=== PATIENT | female | born 1985 | race Caucasian/White ===

== ENCOUNTER 2020-01-17 07:38 | Outpatient (REF) | payer OTHER, SELFPAY | END 2020-01-17 07:39 | disposition home or self-care (01) | LOC: HO.LAB 07:38 | PROVIDERS: Visit Provider Internal Medicine | DX: Z20.828 Contact with and (suspected) exposure to other viral communicable diseases (principal) | CPT/HCPCS: C9803; U0003 ==

== ENCOUNTER 2022-05-29 14:03 | Emergency (ER) | payer MEDICAID, SELFPAY ==
--- NOTE | ~2022-05-29 | XR_ITS ---
EXAMINATION: XR CHEST CLINICAL INFORMATION: Coughing yesterday COMPARISON: None available. TECHNIQUE: Frontal view of the chest was obtained. FINDINGS: The lungs are well-expanded and clear. The heart size and pulmonary vascularity is normal. There is mild spondylosis. No aggressive lytic or sclerotic process seen. XR/XR chest 1V IMPRESSION: Unremarkable chest exam.
[2022-05-29 14:43] VITALS: BP 139/77; PULSE 89; RESP 18; TEMP 36.6; O2SAT 97; BMI 59.9
--- NOTE | 2022-05-29 14:46 | ED.GENADULT ---
HPI - General Adult General Chief complaint: Upper Respiratory Symptoms <ANNABEL Salgado - Last Filed: 05/30/22 11:55> Stated complaint: Asthma <ANNABEL Salgado Last Filed: 05/30/22 11:55> Time Seen by Provider: 05/29/22 17:51 <ANNABEL Salgado Last Filed: 05/30/22 11:55> Source: patient and family <ANNABEL Sutton Last Filed: 05/29/22 19:29> Mode of arrival: ambulatory <ANNABEL Sutton Last Filed: 05/29/22 19:29> Limitations: no limitations <ANNABEL Sutton Last Filed: 05/29/22 19:29> History of Present Illness HPI narrative: 37-year-old female with a past medical history of asthma who is presenting to the ER with complaints of dry cough with wheezing/shortness of breath for approximately 1 week worse in the past few days. Reports that she was seen by her PCP and was given prednisone although she has been on prednisone for 4 days and no symptomatic relief. She is using her albuterol inhaler and her nebulizers at home with no symptomatic relief. Reports she has never been hospitalized or intubated for her asthma. Denies recent travel or sick contacts, fevers, dizziness, neck pain/stiffness, trouble swallowing, nausea/vomiting, sore throat, nasal congestion, drooling, trismus, change in voice, sputum production, lower extremity edema or calf tenderness, abdominal pain, diarrhea or any other symptoms complaints or concerns at this time. <ANNABEL Sutton - Last Filed: 05/29/22 19:29> MD complaint: Cough/wheezing/shortness of breath <ANNABEL Sutton Last Filed: 05/29/22 19:29> Onset (ago): week(s) (1 week worse in the past few days) <ANNABEL Sutton Last Filed: 05/29/22 19:29> Related Data Home medications: Previous Rx's Medication Instructions Recorded albuterol sulfate 0.63 mg/3 mL 0.63 mg (3 mL) inhalation QID PRN 05/29/22 solution for nebulization shortness of breath or wheezing #75 mL albuterol sulfate 90 mcg/actuation 1 inh inhalation QID PRN shortness 05/29/22 aerosol inhaler of breath or wheezing #8.5 grams codeine 10 mg-guaifenesin 100 mg/5 5 ml PO Q6H PRN cold symptoms #120 05/29/22 mL oral liquid (Guaifenesin AC) mL prednisone 20 mg tablet 40 mg PO DAILY inflammation 5 days 05/29/22 #10 tabs <ANNABEL Salgado - Last Filed: 05/30/22 11:55> Allergies/adverse reactions: Allergies Allergy/AdvReac Type Severity Reaction Status Date / Time penicillin V Allergy Unknown Verified 11/03/16 00:00 pt states no food allergies Allergy Unknown Uncoded 11/03/16 00:00 <ANNABEL Salgado - Last Filed: 05/30/22 11:55> Review of Systems Review of Systems: Constitutional : denies med noncompliance, no history of PE or DVT, denies recent travel, No Fever, No Chills ENT/Mouth : No Hoarseness, No sore throat, No Rhinorrhea, No Nasal congestion, No Sinus Pressure, No Ear Pain, No stridor, Eyes: No Redness, No Discharge, No Vision Changes Cardiovascular : No Chest Pain, + SOB, No Dyspnea on Exertion, No Edema, no pleurisy, Respiratory : + Cough, + wheezing, No Sputum, no stridor, no hemoptysis, Gastrointestinal : No Nausea, No Vomiting, No Diarrhea, No abdominal Pain Genitourinary : No Dysuria, No Hematuria Musculoskeletal : No joint pain/swelling, No Myalgias Extremities: no extremity swelling /pain Skin : No rash, no itching, no swelling Neuro : No Weakness, No Numbness, No Headache, No Dizziness, No Paresthesias Psych : No anxiety, depression Heme/Lymph: No Bruising, No Bleeding Endocrine : No Polyuria, No Polydipsia <ANNABEL Sutton Last Filed: 05/29/22 19:29> Yes all other systems are reviewed and are negative <ANNABEL Sutton - Last Filed: 05/29/22 19:29> [facility]LY [facility] Past Medical History Attestation statement: The following information was validated with the patient. <ANNABEL Sutton Last Filed: 05/29/22 19:29> Source: old records reviewed, obtained from family and nursing notes reviewed <ANNABEL Sutton - Last Filed: 05/29/22 19:29> Social History Social History: Social History Advance Directives: No Advance Directives Information Provided: Yes <ANNABEL Salgado - Last Filed: 05/30/22 11:55> Physical Exam ED Vital Signs: Vital Signs - 24 hr 05/29/22 14:43 05/29/22 18:15 05/29/22 19:27 Temperature 98 F 98.9 F Pulse Rate 89 90 84 Respiratory Rate 18 24 H 16 Blood Pressure 139/77 145/79 H Pulse Oximetry 97 98 Oxygen Delivery Method Room Air 05/29/22 20:02 Temperature Pulse Rate 88 Respiratory Rate Blood Pressure Pulse Oximetry 99 Oxygen Delivery Method Room Air BMI result Body Mass Index 59.9 <ANNABEL Salgado - Last Filed: 05/30/22 11:55> Vital Signs - 24 hr 05/29/22 14:43 05/29/22 18:15 05/29/22 19:27 Temperature 98 F 98.9 F Pulse Rate 89 90 84 Respiratory Rate 18 24 H 16 Blood Pressure 139/77 145/79 H Pulse Oximetry 97 98 Oxygen Delivery Method Room Air 05/29/22 20:02 Temperature Pulse Rate 88 Respiratory Rate Blood Pressure Pulse Oximetry 99 Oxygen Delivery Method Room Air BMI result Body Mass Index 59.9 vital signs have been reviewed as normal and appeared to be correct. Blood pressure normal. Heart rate normal. Respiration rate normal. Temperature normal. Oxygen saturation normal. <ANNABEL Sutton - Last Filed: 05/29/22 19:29> Appearance: Alert. Oriented X3. No acute distress. Head: Normal external exam. Normocephalic. Atraumatic. Eyes: PERRLA. EOMI. Conjunctiva and sclera normal. Eyelids normal. ENT: EAC normal. TM's Normal. Pharynx normal. Uvula midline. Moist mucous membranes. No lesions/ulcerations or masses noted on the tongue. Normal voice. No trismus noted. No drooling noted. No muffled voice noted. Neck: Normal inspection. Neck supple. FROM. No adenopathy. Thyroid Normal. No tracheal deviation noted. No crepitus is noted. No meningeal signs. No neck mass noted. No signs of trauma noted. CVS: Normal heart rate and rhythm. Heart sound normal. Pulses normal throughout. No murmurs/rales/gallops. Respiratory: No respiratory distress. Patient with decreased breath sounds and inspiratory and expiratory wheezing throughout. No rales/rhonchi noted. Chest nontender. No crepitus is noted. No signs of trauma noted. No accessory muscle usage noted or decreased air movement noted. No signs of trauma. Abdomen: Soft and nontender. Bowel sounds normal in all 4 quadrants. No distention noted. No organomegaly noted. No visible injury noted. Back: No CVA tenderness. Full range of motion noted. Nontender. No signs of trauma. Patient neuro intact bilaterally and distally on all 4 extremities. Patient's reflexes intact bilaterally and distally on all 4 extremities. No rashes/lesion/induration/fluctuance or signs of infection noted. Skin: Skin warm and dry. Normal skin color. Normal skin turgor. No rashes/lesions/lacerations noted. Extremities: No lower extremity edema. No calf tenderness is noted. Extremities exhibit normal range of motion and nontender. Neuro: Oriented X 3. No motor deficit. No sensory deficit. Reflexes normal. Normal steady gait. No focal neuro deficits noted. CN's II-XII intact bilaterally? Vascular: + radial pulses. Normal cap refill. No cyanosis noted to upper extremity nails <ANNABEL Sutton - Last Filed: 05/29/22 19:29> Course Course Course Narrative: RME: 37 yold female with pmh of asthma presents to the ED with coughing and wheezing and SOB. patient is on prednisone. Chest xray and SARS ordered <ANNABEL Salgado - Last Filed: 05/30/22 11:55> Reevaluation(s) Reevaluation #1: 37-year-old female presenting with acute cough most consistent with asthma exacerbation with bronchitis. Presentation not consistent with acute bacterial pneumonia, influenza, asthma, transit airway hyper responsiveness. Presentation not consistent with chronic causes of cough such as GERD, COPD, postnasal drip, medication side effect, CHF, lung cancer of mass. Patient negative for COVID/RSV/flu. Patient negative for any acute processes on chest x-ray. Therefore patient received a breathing treatment reports she feels much better will also DC home with Robitussin with codeine instructions to continue taking the steroids as prescribed and to return if any new or worsening symptoms. Patient understands agrees with this plan. <ANNABEL Sutton - Last Filed: 05/29/22 19:29> Time: 19:20 <ANNABEL Sutton - Last Filed: 05/29/22 19:29> Medications Administered Discontinued Medications Generic Name Dose Route Start Last Admin Trade Name Freq PRN Reason Stop Dose Admin Albuterol Sulfate 5 mg 05/29/22 18:23 05/29/22 19:24 Albuterol Sulfate (0.083%) 2.5 Mg/3 Ml Vial.Neb INHALE 05/29/22 18:24 5 mg ONCE ONE Administration Guaifenesin/Codeine Phosphate 10 ml 05/29/22 18:23 05/29/22 18:46 Guaifen/Codeine Sf 200/20/10ml 10 Ml Liquid PO 05/29/22 18:24 10 ml ONCE ONE Administration <ANNABEL Salgado - Last Filed: 05/30/22 11:55> Medications Administered Discontinued Medications Generic Name Dose Route Start Last Admin Trade Name Freq PRN Reason Stop Dose Admin Albuterol Sulfate 5 mg 05/29/22 18:23 05/29/22 19:24 Albuterol Sulfate (0.083%) 2.5 Mg/3 Ml Vial.Neb INHALE 05/29/22 18:24 5 mg ONCE ONE Administration Guaifenesin/Codeine Phosphate 10 ml 05/29/22 18:23 05/29/22 18:46 Guaifen/Codeine Sf 200/20/10ml 10 Ml Liquid PO 05/29/22 18:24 10 ml ONCE ONE Administration <ANNABEL Sutton - Last Filed: 05/29/22 19:29> Medical Decision Making Lab Data MDM Lab Attestation statement: I reviewed the patient's lab results. <ANNABEL Sutton - Last Filed: 05/29/22 19:29> Labs: Lab Results 05/29/22 Range/Units 16:05 Influenza Type A (PCR) NEGATIVE (Negative) Influenza Type B (PCR) NEGATIVE (Negative) RSV RNA Qual (PCR) NEGATIVE (Negative) SARS-CoV-2 RNA (RT-PCR) NEGATIVE (Negative) <ANNABEL Salgado - Last Filed: 05/30/22 11:55> Lab Results 05/29/22 Range/Units 16:05 Influenza Type A (PCR) NEGATIVE (Negative) Influenza Type B (PCR) NEGATIVE (Negative) RSV RNA Qual (PCR) NEGATIVE (Negative) SARS-CoV-2 RNA (RT-PCR) NEGATIVE (Negative) <ANNABEL Sutton Last Filed: 05/29/22 19:29> Independent Interpretation I performed an independent interpretation of an: Plain X-Ray (Chest x-ray reviewed by myself agreeable radiologist report) <ANNABEL Sutton Last Filed: 05/29/22 19:29> Radiology Impression Discussion of test interpretation with radiology: I have reviewed the radiologist's reading. <ANNABEL Sutton Last Filed: 05/29/22 19:29> Radiologist Impression: FINDINGS: The lungs are well-expanded and clear. The heart size and pulmonary vascularity is normal. There is mild spondylosis. No aggressive lytic or sclerotic process seen. XR/XR chest 1V IMPRESSION: Unremarkable chest exam. <ANNABEL Sutton Last Filed: 05/29/22 19:29> Independent Historian Clinical information obtained from an independent historian. History obtained from or confirmed by: Spouse <ANNABEL Sutton Last Filed: 05/29/22 19:29> Prescription Management I considered prescription management with: Pain Medication and Antibiotic <ANNABEL Sutton Last Filed: 05/29/22 19:29> Will DC home with antibiotics for bacterial bronchitis and Robitussin with codeine for cough with pain <ANNABEL Sutton Last Filed: 05/29/22 19:29> Chronic Conditions Patient?s care impacted by: Other (asthma) <ANNABEL Sutton Last Filed: 05/29/22 19:29> Discharge Plan Discharge Clinical Impression: Asthma exacerbation, Acute bronchitis with bronchospasm <ANNABEL Salgado Last Filed: 05/30/22 11:55> Patient Disposition: Left Against Medical Advice <ANNABEL Salgado Last Filed: 05/30/22 11:55> Instructions: Asthma (DC), Acute Bronchitis (ED) <ANNABEL Salgado Last Filed: 05/30/22 11:55> Prescriptions: New albuterol sulfate 0.63 mg/3 mL solution for nebulization 0.63 mg inhalation QID PRN (Reason: shortness of breath or wheezing) Qty: 75 0RF prednisone 20 mg tablet 40 mg PO DAILY 5 Days Qty: 10 0RF codeine-guaifenesin [Guaifenesin AC] 10-100 mg/5 mL liquid 5 ml PO Q6H PRN (Reason: cold symptoms) Qty: 120 0RF albuterol sulfate 90 mcg/actuation HFA aerosol inhaler 1 inh inhalation QID PRN (Reason: shortness of breath or wheezing) Qty: 8.5 0RF <ANNABEL Salgado - Last Filed: 05/30/22 11:55> Referrals: Ghada Singleton MD [Primary Care Provider] - 2 days <ANNABEL Salgado - Last Filed: 05/30/22 11:55> Stand Alone Forms: Work/School Release <ANNABEL Salgado - Last Filed: 05/30/22 11:55> Interventions: ED Discharge Assessment Last Done: 05/29/22 20:02 <ANNABEL Salgado - Last Filed: 05/30/22 11:55> Discharge Date/Time: 05/29/22 20:03 <ANNABEL Salgado - Last Filed: 05/30/22 11:55>
[2022-05-29 17:00] LABS: Influenza A PCR NEGATIVE (Negative); Influenza B PCR NEGATIVE (Negative); Resp Syncy Virus RNA Qual PCR NEGATIVE (Negative); SARS COV2 PCR INHOUSE NEGATIVE (Negative)
[2022-05-29 18:15] VITALS: BP 145/79; PULSE 90; RESP 24; TEMP 37.2; O2SAT 98
[2022-05-29] MEDS: guaiFEN/Codeine SF 200/20/10ML 10 ML LIQUID PO (18:46)
[2022-05-29] MEDS: Albuterol Sulfate (0.083%) 2.5 MG/3 ML VIAL.NEB 5 MG INHALE (19:24)
[2022-05-29 19:27] VITALS: PULSE 84; RESP 16; O2SAT 99
[2022-05-29 20:02] VITALS: PULSE 88; O2SAT 99
== END 2022-05-29 20:03 | disposition left against medical advice (07) ==
PROVIDERS: Physician Assistant; Emergency Provider Internal Medicine; PCP Internal Medicine
DX: J45.901 Unspecified asthma with (acute) exacerbation (principal); J20.9 Acute bronchitis, unspecified; R05.9 Cough, unspecified; R06.02 Shortness of breath; Z20.822 Contact with and (suspected) exposure to COVID-19; Z20.828 Contact with and (suspected) exposure to other viral communicable diseases; Z79.899 Other long term (current) drug therapy
CPT/HCPCS: 0241U; 71045; 94640; 99283

== ENCOUNTER 2022-06-04 08:27 | Outpatient (REF) | payer MEDICAID, SELFPAY ==
[2022-06-04 08:45] LABS: MANUAL DIFF FLAG NO
[2022-06-04 08:54] LABS: Basophils Absolute Auto 0.1 X10*3/uL (0.0-0.2); Basophils Percent Auto 0.4 % (0-2); Eosinophils Absolute Auto 0.1 X10*3/uL (0.0-0.4); Eosinophils Percent Auto 0.8 % (0-4); Hematocrit 40.8 % (37.0-47.0); Hemoglobin 12.5 g/dl (12.0-16.0); Imm Gran Abs Auto 0.18 X10*3/uL (0.00-0.03); Imm Gran Pct Auto 1.4 % (0.0-0.4); Lymphocytes Absolute Auto 1.6 X10*3/uL (1.2-4.9); Lymphocytes Percent Auto 12.3 % (20-40); Mean Corpuscular HGB Conc 30.6 g/dl (31.0-35.0); Mean Corpuscular Hemoglobin 25.6 pg (27.0-33.0); Mean Corpuscular Volume 83.6 fL (80.0-98.0); Mean Platelet Volume 10.8 fL (9.4-12.3); Monocytes Absolute Auto 0.7 X10*3/uL (0.1-1.2); Monocytes Percent Auto 5.6 % (2-11); Neutrophils Absolute Auto 10.5 x10*3/uL (2.0-8.3); Neutrophils Percent Auto 79.5 % (45-73); Platelet Count 251 X10*3/uL (160-400); Red Blood Count 4.88 X10*6/uL (4.20-5.50); Red Cell Distribution Width 16.5 % (11.0-16.0); White Blood Count 13.2 X10*3/uL (4.8-10.8)
[2022-06-04 09:31] LABS: Alanine Aminotransferase 31 U/L (0-31); Albumin Level 3.6 g/dL (3.5-5.0); Alkaline Phosphatase 65 U/L (39-117); Anion Gap 10 (12-20); Aspartate Amino Transferase 15 U/L (5-31); Bilirubin Total 0.5 mg/dL (0.0-1.0); Blood Urea Nitrogen 15 mg/dL (9-16); Calcium 8.7 mg/dL (8.4-10.2); Carbon Dioxide 28 mmol/L (22-29); Chloride 106 mmol/L (96-108); Cholesterol 138 mg/dL; Estimated Glomerular Filt Rate > 60; Glucose Random 109 mg/dL (60-115); HDL Cholesterol 38 mg/dL; LDL Cholesterol Calculated 84 mg/dl; Potassium 4.2 mmol/L (3.3-5.1); Sodium 140 mmol/L (135-145); Total Protein 6.5 g/dL (6.5-8.0); Triglycerides 83 mg/dL
[2022-06-04 09:35] LABS: Estimated Average Glucose 126 mg/dL
[2022-06-04 09:47] LABS: Ferritin 28 ng/mL (10-122)
== END 2022-06-04 08:28 | disposition home or self-care (01) ==
LOC: HO.LAB 08:27
PROVIDERS: PCP Internal Medicine; Visit Provider Internal Medicine
DX: E03.8 Other specified hypothyroidism (principal); E28.2 Polycystic ovarian syndrome; E66.01 Morbid (severe) obesity due to excess calories; I10 Essential (primary) hypertension; L40.8 Other psoriasis
CPT/HCPCS: 36415; 80053; 80061; 82728; 83036; 85025

== ENCOUNTER 2023-10-29 23:29 | Emergency (ER) | payer MEDICAID, SELFPAY ==
[2023-10-29 23:42] VITALS: BP 125/65; PULSE 86; RESP 20; TEMP 37.1; O2SAT 99; BMI 61.0
--- NOTE | 2023-10-30 01:20 | ED.BURNSMOKE ---
HPI - Burn/Smoke Inhalation General Chief complaint: Burn/Smoke Inhalation Stated complaint: L Arm Burn From Cooking 10/27/24 Time Seen by Provider: 10/30/23 01:14 Source: patient Mode of arrival: ambulatory Limitations: no limitations History of Present Illness HPI Narrative: 38 yo female presents to the ER for evaluation of a steam burn to her left inner forearm that occurred at work today at 15:00. Patient works as a cook, she took the lid off of a large pot of boiling water and hot steam burned the medial aspect of her left forearm. She rinsed it with cool water and put Vaseline on it. A few hours later she noticed buckling blisters so decided to come to the ER for further evaluation. She reports the pain is currently 1/10. Her tetanus shot is up-to-date no drainage from the burn. MD Complaint: burn Onset (ago): hour(s) Type of Exposure: steam Smoke Inhalation: none Location - Extremities: left: forearm Severity: mild Severity scale (1-10): 1 Associated symptoms: denies other symptoms Treatment Prior to Arrival: dressings Rule if 9: 1. Second degree, partial-thickness burn to majority of the left forearm with 1/3 of the area with small, blisters that are fluid-filled, proximally 2% BSA Related Data Previous Rx's ?Medication ?Instructions ?Recorded albuterol sulfate 0.63 mg/3 mL 0.63 mg (3 mL) inhalation QID PRN 05/29/22 solution for nebulization shortness of breath or wheezing #75 mL albuterol sulfate 90 mcg/actuation 1 inh inhalation QID PRN shortness 05/29/22 aerosol inhaler of breath or wheezing #8.5 grams codeine 10 mg-guaifenesin 100 mg/5 5 ml PO Q6H PRN cold symptoms #120 05/29/22 mL oral liquid (Guaifenesin AC) mL prednisone 20 mg tablet 40 mg (2 x 20 mg) PO DAILY 05/29/22 inflammation 5 days #10 tabs Allergies Allergy/AdvReac Type Severity Reaction Status Date / Time penicillin V Allergy Unknown Rash Verified 10/29/23 23:43 pt states no food allergies Allergy Unknown Unknown Uncoded 10/29/23 23:43 Review of Systems Review of Systems: Yes all other systems are reviewed and are negative [facility] Social History Social History Advance Directives: No Advance Directives Information Provided: Yes Physical Exam Vital Signs: Vital Signs: Last Vital Signs Temp 98.7 F 10/29/23 23:42 Pulse 86 10/29/23 23:42 Resp 20 10/29/23 23:42 BP 125/65 10/29/23 23:42 Pulse Ox 99 10/29/23 23:42 O2 Del Method Room Air 10/29/23 23:42 BMI result Body Mass Index 61.0 Appearance: Alert. Oriented X3. No acute distress. HEENT: normal inspection CVS: Normal heart rate and rhythm. Pulses normal. Respiratory: No respiratory distress. Skin: Skin warm and dry. Normal skin color. Normal skin turgor. On the extensor surface of the arms there are white plaques on the elbows consistent with psoriasis Extremities: Left forearm with a large area, proximally 18 cm x 6 cm erythematous, tender area consistent with a partial-thickness burn, the area blanches, 1/3 of the area with small fluid-filled blisters. Neurovascularly intact distally. Neuro: Oriented X 3. No motor deficit. No sensory deficit. Medical Decision Making Medical Decision Making MDM Narrative: 38-year-old female presents the ER for evaluation of a steam burn to her left forearm. It is not circumferential and involves the anterior aspect of the forearm. There are some small flu fell pressors. The area blanches. No evidence of full-thickness or third-degree burn. Area was cleansed with normal saline. Bacitracin and a dry sterile dressing was applied. Wound care was discussed with the patient. Encouraged follow-up with her PCP. She is stable for discharge home. Differential Diagnosis Differential Diagnoses: The differential diagnosis associated with the presentation includes Superficial burn, partial-thickness burn, full-thickness burn, cellulitis External Record Review External record reviewed: Outpatient record and Prior outpatient labs Prescription Management I considered prescription management with: Pain Medication and Antibiotic Chronic Conditions Patient?s care impacted by: Other (Psoriasis) Critical Care Time Critical Care Time Critical Care Time: No Discharge Plan Discharge Clinical Impression: 2nd deg burn arm Qualifiers: Encounter type: initial encounter Upper extremity location: forearm Laterality: left Qualified Code(s): T22.212A - Burn of second degree of left forearm, initial encounter Patient Disposition: Home, Self-Care Instructions: Second Degree Burn (ED) Additional Instructions: recommend using Bacitracin to the burn 2 times per day keep clean and covered with a nonstick dressing take motrin and tylenol as needed for pain follow up with your doctor If you develop new or worsening symptoms call 911 or come back to the ER for further evaluation. Prescriptions: No Action albuterol sulfate 0.63 mg/3 mL solution for nebulization 0.63 mg inhalation QID PRN (Reason: shortness of breath or wheezing) Qty: 75 0RF prednisone 20 mg tablet 40 mg PO DAILY 5 Days Qty: 10 0RF codeine-guaifenesin [Guaifenesin AC] 10-100 mg/5 mL liquid 5 ml PO Q6H PRN (Reason: cold symptoms) Qty: 120 0RF albuterol sulfate 90 mcg/actuation HFA aerosol inhaler 1 inh inhalation QID PRN (Reason: shortness of breath or wheezing) Qty: 8.5 0RF Referrals: Ghada Singleton MD [Primary Care Provider] - Stand Alone Forms: Work/School Release Print Language: Cuban
[2023-10-30 01:28] VITALS: BP 146/90; PULSE 80; RESP 17; TEMP 36.6; O2SAT 99
[2023-10-30] MEDS: Bacitracin Oint 0.9 GM PACKET 2 APPL TOPICAL (02:50)
[2023-10-30 02:53] VITALS: BP 146/90; PULSE 80; RESP 17; TEMP 36.6; O2SAT 99
== END 2023-10-30 02:56 | disposition home or self-care (01) ==
PROVIDERS: Emergency Provider Emergency Medicine Emergency Medical Services; PCP Internal Medicine
DX: T22.212A Burn of second degree of left forearm, initial encounter (principal); T31.0 Burns involving less than 10% of body surface; M79.632 Pain in left forearm; Z79.899 Other long term (current) drug therapy
CPT/HCPCS: 99282; 99283

== ENCOUNTER 2024-03-04 13:02 | Emergency (ER) | payer MEDICAID, SELFPAY ==
--- NOTE | ~2024-03-04 | XR_ITS ---
EXAMINATION: XR CHEST CLINICAL INFORMATION: cough COMPARISON: Chest x-ray 05/29/2022 TECHNIQUE: 2 views of the chest were obtained. FINDINGS: The lungs are well-expanded and clear. The heart size and pulmonary vascularity is normal. There is mild dextroscoliosis with moderate spondylosis of dorsal spine. No aggressive lytic or sclerotic process seen. XR/XR chest 2V IMPRESSION: Mild dextroscoliosis and moderate spondylosis of dorsal spine. No aggressive lytic or sclerotic process. The lungs are clear. Electronically signed by: Sukumar Maya MD 03/04/2024 02:26 PM EST
[2024-03-04 13:37] VITALS: BP 177/89; PULSE 97; RESP 20; TEMP 36.1; O2SAT 100; BMI 59.9
--- NOTE | 2024-03-04 13:37 | ED.GENADULT ---
HPI - General Adult General Chief complaint: Upper Respiratory Symptoms Stated complaint: Flu Symptoms Time Seen by Provider: 03/04/24 17:59 Source: patient Mode of arrival: ambulatory Limitations: no limitations History of Present Illness ED Provider: DAMION CONTRERAS PA-C HPI narrative: 38 year old female presents to the ED today for evaluation of cough productive of yellow sputum, congestion and headache x3 days. She states both of her children are ill with the same symptoms. They were seen [facility] week and diagnosed with pneumonia although they did not have chest x-rays taken. Patient is now experiencing the same symptoms her children had. She endorses history of asthma. She uses symbicort at home. She does not feel wheezy and has not had to use her rescue inhaler. Denies fever, chills, sore throat, chest pain. Related Data Previous Rx's ?Medication ?Instructions ?Recorded albuterol sulfate 0.63 mg/3 mL 0.63 mg (3 mL) inhalation QID PRN 05/29/22 solution for nebulization shortness of breath or wheezing #75 mL albuterol sulfate 90 mcg/actuation 1 inh inhalation QID PRN shortness 05/29/22 aerosol inhaler of breath or wheezing #8.5 grams codeine 10 mg-guaifenesin 100 mg/5 5 ml PO Q6H PRN cold symptoms #120 05/29/22 mL oral liquid (Guaifenesin AC) mL prednisone 20 mg tablet 40 mg (2 x 20 mg) PO DAILY 05/29/22 inflammation 5 days #10 tabs azithromycin 250 mg tablet See Rx Instructions PO .COMPLEX #6 03/04/24 tabs guaifenesin 200 mg tablet 200 mg PO TID PRN cough #10 tabs 03/04/24 prednisone 20 mg tablet 40 mg (2 x 20 mg) PO DAILY 5 days 03/04/24 #10 tabs Allergies Allergy/AdvReac Type Severity Reaction Status Date / Time penicillin V Allergy Unknown Rash Verified 03/04/24 13:41 pt states no food allergies Allergy Unknown Unknown Uncoded 03/04/24 13:41 Review of Systems Review of Systems: Constitutional: No fever, chills, fatigue, night sweats, weight changes ENT/Mouth: No ear pain, hearing loss, nasal congestion, sinus pain, rhinorrhea, sore throat, +congestion Eyes: No eye pain, swelling, redness, vision changes, discharge Cardio: No chest pain, palpitations, BREWER, orthopnea, peripheral edema Pulm: No SOB,wheezing, dyspnea, hemoptysis, +productive cough GI: No nausea, vomiting, hematemesis, abdominal pain, diarrhea, constipation, hematochezia, melena : No irregular bleeding, dysuria, frequency, urgency, hesitancy, hematuria, flank pain, urinary flow changes, urinary incontinence or retention MSK: No back pain, neck pain, joint pain, +myalgias Skin: No lesions, rashes Neuro: No weakness, numbness, paresthesias, LOC, dizziness, headache Psych: No anxiety/panic, depression, SI/HI, AH/VH All other systems reviewed and are negative. [facility] Past Medical History Attestation statement: The following information was validated with the patient. Source: old records reviewed and nursing notes reviewed Social History Social History Advance Directives: No Advance Directives Information Provided: No Physical Exam ED Vital Signs: Vital Signs - 24 hr 03/04/24 13:37 Temperature 97 F Pulse Rate 97 Respiratory Rate 20 Blood Pressure 177/89 H Pulse Oximetry 100 Oxygen Delivery Method Room Air BMI result Body Mass Index 59.9 Hypertensive, afebrile. Not hypoxic. General: Well appearing, in no acute distress. Skin: Warm, dry, intact. No rashes or lesions. Head: Normocephalic, atraumatic. EENT: Hearing is intact b/l. Conjunctiva clear. PERRLA. EOM intact. Moist mucous membranes.? Neck: Supple without LAD. Cardiac: Chest wall symmetric. RRR Lungs: Normal respiratory effort without accessory muscle use. CTA bilaterally. No rales, rhonchi, or wheezes.? Abdomen: Soft, non-tender, non-distended Ext: Upper and lower extremities atraumatic, without tenderness, deformity, swelling or erythema Neuro: AOx3. Normal speech. Ambulating with steady gait. Psych: Appropriate mood and affect. Responds appropriately to questions. Course Course Course Narrative: RME, this is a rapid medical exam performed by Asael Hernandez please refer to primary provider for complete H&P- 38-year-old female presents for evaluation of cough, congestion. She reports her children are home sick with similar symptoms and diagnosed with ?pneumonia. ? Plan for viral swabs and chest x-ray. Reevaluation(s) Reevaluation #1: Patient tested negative for COVID, flu, RSV. Chest x-ray does not demonstrate any infiltrate or consolidation to suggest pneumonia. Given her children were both recently ill, will prescribe azithromycin. Lungs are clear without wheezes. Breathing treatment at warranted at this time. Will send prednisone and guaifenesin to pharmacy. She was agreeable with this. Patient has remained stable throughout ED visit today. Discussed worrisome signs and symptoms and when to return to the ED. All questions answered at this time. Patient is agreeable with disposition and stable for discharge. Medical Decision Making Medical Decision Making [facility] Narrative: 38 year old female presents to the ED today for evaluation of cough productive of yellow sputum, congestion and headache x3 days. She was hypertensive. Vitals are otherwise WNL. She is afebrile and not hypoxic. Lying comfortably on the exam bed. No noted respiratory distress or tripoding. No increased effort of breathing. No cough. Lungs are CTA bilaterally without wheezes or rhonchi. Differential diagnosis includes viral syndrome, bronchitis, pneumonia, asthma exacerbation PERC 0 - PE unlikely. Plan for viral swabs, chest x-ray, re-evaluation. Differential Diagnosis Differential Diagnoses: The differential diagnosis associated with the presentation includes as above. Admission/Observation Not indicated. Lab Data [facility] Lab Attestation statement: I reviewed the patient's lab results. as above. Labs: Lab Results 03/04/24 Range/Units 15:23 Influenza Type A (PCR) NEGATIVE (Negative) Influenza Type B (PCR) NEGATIVE (Negative) RSV RNA Qual (PCR) NEGATIVE (Negative) SARS-CoV-2 RNA (RT-PCR) NEGATIVE (Negative) Independent Interpretation I performed an independent interpretation of an: Plain X-Ray Interpretation: Chest x-ray without focal infiltrate or consolidation Radiology Impression Discussion of test interpretation with radiology: I have reviewed the radiologist's reading. Radiologist Impression: EXAMINATION: XR CHEST CLINICAL INFORMATION: cough COMPARISON: Chest x-ray 05/29/2022 TECHNIQUE: 2 views of the chest were obtained. FINDINGS: The lungs are well-expanded and clear. The heart size and pulmonary vascularity is normal. There is mild dextroscoliosis with moderate spondylosis of dorsal spine. No aggressive lytic or sclerotic process seen. XR/XR chest 2V IMPRESSION: Mild dextroscoliosis and moderate spondylosis of dorsal spine. No aggressive lytic or sclerotic process. The lungs are clear. Electronically signed by: Sukumar Maya MD 03/04/2024 02:26 PM EST External Record Review External record reviewed: Inpatient record Prescription Management I considered prescription management with: Antibiotic (Azithromycin) and Other (Prednisone, guaifenesin) Chronic Conditions Patient?s care impacted by: Other (Asthma) Social Determinants Patient?s care significantly limited by Social Determinants of Health including: Other Social Determinant of Health Critical Care Time Critical Care Time Critical Care Time: No Discharge Plan Discharge Clinical Impression: Upper respiratory infection Patient Disposition: Home, Self-Care Instructions: Upper Respiratory Infection (ED) Additional Instructions: You were evaluated in the ED today for upper respiratory symptoms. You tested negative for flu, COVID, RSV. Your chest xray is normal and does not demonstrate pneumonia. Azithromycin as an antibiotic that has been sent to your pharmacy for treatment. Alter ibuprofen and Tylenol for fevers and body aches. Guaifenesin has been sent to your pharmacy for you to take as needed for cough. Prednisone as a steroid that has been sent to your pharmacy. Take this as prescribed over the next 5 days. Follow up with your primary care provider as needed. If symptoms persist or worsen please return to the emergency department. The case of an emergency call 911. Prescriptions: New azithromycin 250 mg tablet See Rx Instructions PO .COMPLEX Qty: 6 0RF Rx Instructions: For 250 mg dose pack: take 500 mg today (day 1), then 250 mg for 4 days (days 2-5) prednisone 20 mg tablet 40 mg PO DAILY 5 Days Qty: 10 0RF guaifenesin 200 mg tablet 200 mg PO TID PRN (Reason: cough) Qty: 10 0RF No Action albuterol sulfate 0.63 mg/3 mL solution for nebulization 0.63 mg inhalation QID PRN (Reason: shortness of breath or wheezing) Qty: 75 0RF prednisone 20 mg tablet 40 mg PO DAILY 5 Days Qty: 10 0RF codeine-guaifenesin [Guaifenesin AC] 10-100 mg/5 mL liquid 5 ml PO Q6H PRN (Reason: cold symptoms) Qty: 120 0RF albuterol sulfate 90 mcg/actuation HFA aerosol inhaler 1 inh inhalation QID PRN (Reason: shortness of breath or wheezing) Qty: 8.5 0RF Referrals: Ghada Singleton MD [Primary Care Provider] - Stand Alone Forms: Work/School Release Print Language: English
[2024-03-04 16:11] LABS: Influenza A PCR NEGATIVE (Negative); Influenza B PCR NEGATIVE (Negative); Resp Syncy Virus RNA Qual PCR NEGATIVE (Negative); SARS COV2 PCR INHOUSE NEGATIVE (Negative)
[2024-03-04 18:47] VITALS: BP 177/89; PULSE 97; RESP 20; TEMP 36.1; O2SAT 100
== END 2024-03-04 18:48 | disposition home or self-care (01) ==
PROVIDERS: Physician Assistant; Emergency Provider Emergency Medicine; PCP Internal Medicine
DX: J06.9 Acute upper respiratory infection, unspecified (principal); R05.9 Cough, unspecified; R09.81 Nasal congestion; R51.9 Headache, unspecified; Z03.818 Encounter for observation for suspected exposure to other biological agents ruled out
CPT/HCPCS: 0241U; 71046; 99282; 99283

== ENCOUNTER → 2024-03-04 13:40 | Outpatient (BNV) | payer MEDICAID, SELFPAY | PROVIDERS: PCP Internal Medicine; Visit Provider Radiology Diagnostic Radiology | DX: M41.9 Scoliosis, unspecified (principal) | CPT/HCPCS: 71046 ==